=== PATIENT | female | born 1995 | race Caucasian/White ===

== ENCOUNTER → 2024-08-30 | Outpatient (CLI) | payer OTHER ==
[~2024-08-30] MED LIST: NAPR-885 PO; OXYC1TAB23 PO
== END ==
LOC: M SOG 07:21
PROVIDERS: ATTEND Physician Assistant
DX: S62.201D Unspecified fracture of first metacarpal bone, right hand, subsequent encounter for fracture with routine healing (principal)

== ENCOUNTER → 2024-10-06 | Outpatient (CLI) | payer OTHER | LOC: M SOG 06:55 | PROVIDERS: ATTEND Physician Assistant | DX: S62.201D Unspecified fracture of first metacarpal bone, right hand, subsequent encounter for fracture with routine healing (principal) ==